=== PATIENT | female | born 1995 | race African-American/Black ===

== ENCOUNTER 2017-05-15 19:38 | Emergency (ER) | payer BC ==
[~2017-05-15] VITALS: Ht 162.6 cm; Wt 104.3 kg
[2017-05-15] MEDS ORDERED: FLONASE 0.05%50 MCG NASAL (19:43)
[2017-05-15] MEDS ORDERED: ACCUNEB SO1.25 MG/1 INH (19:43)
[2017-05-15] MEDS ORDERED: ATIVAN0.5 MG PO (21:18)
[2017-05-15 21:30] VITALS: BP 155/65
== END 2017-05-15 21:36 | disposition home or self-care (01) ==
LOC: ER 19:38
DX: F41.9 Anxiety disorder, unspecified (principal); J45.909 Unspecified asthma, uncomplicated; Z72.820 Sleep deprivation; Z98.890 Other specified postprocedural states